=== PATIENT | female | born 1940 | race Caucasian/White ===

== ENCOUNTER 2021-10-13 02:25 | Inpatient (IN) | payer OTHER, MEDICAID ==
[~2021-10-13] VITALS: Ht 160 cm; Wt 57.6 kg
[2021-10-13] VITALS (12 sets, daily range): BP systolic 112–152
[2021-10-13] MEDS ORDERED: ASPIRIN 81 MG TAB.CHEW PO ONE (03:00)
[2021-10-13 03:22] LABS: BASOPHILS % (AUTO) 0.1 % (0.0-2.0); EOSINOPHILS % (AUTO) 0.1 % (0.0-4.0); HEMATOCRIT 32.7 % (36-48); LYMPHOCYTES # (AUTO) 0.6 K/uL (1.0-5.5); LYMPHOCYTES % (AUTO) 3.5 % (20.5-51.5); MEAN CORPUSCULAR HEMOGLOBIN 30 pg (27-31); MEAN CORPUSCULAR HGB CONC 34 % (32-36); MEAN CORPUSCULAR VOLUME 90 fL (79.0-98.0); MONOCYTES # (AUTO) 0.4 K/uL (0.0-1.0); NEUTROPHILS # (AUTO) 17.3 K/uL (1.8-7.7); NEUTROPHILS % (AUTO) 94.3 % (40.0-70.0); PLATELET COUNT (AUTO) 413 K/uL (130-430); RED BLOOD CELL COUNT(AUTO) 3.63 MIL/uL (4.2-6.2); RED CELL DISTRIBUTION WIDTH 16.4 % (9.0-15.0); WHITE BLOOD COUNT (AUTO) 18.4 K/uL (4.8-10.8)
[2021-10-13 03:35] LABS: ANION GAP 10 (5-15); CALCIUM 8.4 mg/dL (8.4-11.0); CHLORIDE 100 mmol/L (98-107); CREATININE 0.86 mg/dL (0.55-1.30); GLUCOSE 198 mg/dL (70-99); POTASSIUM 4.5 mmol/L (3.5-5.1); SODIUM SERUM 138 mmol/L (136-145); UREA NITROGEN, BLOOD 16 mg/dL (8-21)
[2021-10-13 03:39] LABS: INR 1.1 (0.8-1.2); PROTHROMBIN TIME 10.9 SECS (9.5-12.5)
[2021-10-13 03:46] LABS: ALANINE AMINOTRANSFERASE 47 U/L (12-78); ALBUMIN 2.2 g/dL (3.4-4.8); ASPARTATE AMINOTRANSFERASE 22 U/L (10-37); TOTAL BILIRUBIN 0.4 mg/dL (0.0-1.0)
[2021-10-13] MEDS ORDERED: cefTRIAXone 1 GM IVPB PREMIX 50 ML IV ONE (05:15)
[2021-10-13] MEDS ORDERED: AZITHROMYCIN 500 MG in NS 250 ML IV ONE (05:15)
[2021-10-13] MEDS ORDERED: BISA5TAB10 PO (06:24)
[2021-10-13] MEDS ORDERED: ATOR40TA68 PO (06:24)
[2021-10-13] MEDS ORDERED: PRED20TA PO (06:24)
[2021-10-13] MEDS ORDERED: METO25TA6 PO (06:24)
[2021-10-13] MEDS ORDERED: LISI20TA30 PO (06:24)
[2021-10-13] MEDS ORDERED: INSU100V7 SUBCUT (06:24)
[2021-10-13] MEDS ORDERED: METF-864 PO (06:24)
[2021-10-13] MEDS ORDERED: GLUC1KIT IM (06:24)
[2021-10-13] MEDS ORDERED: MULT-1117 PO (06:24)
[2021-10-13] MEDS ORDERED: DOCU-144 PO (06:24)
[2021-10-13] MEDS ORDERED: ALBU2.5V7 INH (06:24)
[2021-10-13] MEDS ORDERED: ONDA8TAB60 PO (06:24)
[2021-10-13] MEDS ORDERED: LOVI60 SQ (06:24)
[2021-10-13] MEDS ORDERED: ACET325T PO (06:24)
[2021-10-13] MEDS ORDERED: CEFT500V5 IV (06:24)
[2021-10-13] MEDS ORDERED: *LOVENOX 1MG/KG Q12H/PHARMACY XX PRN (07:15)
[2021-10-13] MEDS ORDERED: AZITHROMYCIN 500 MG/VIAL (ZITHROMAX) IV ONE (07:35)
[2021-10-13] MEDS ORDERED: METHYLPREDNISOLONE SOD SUCC 40 MG/ML VIAL IVP ONE (08:15)
[2021-10-13] MEDS: IPRATROPIUM/ALBUTEROL SULFATE 3 ML AMPUL.NEB (DUONEB) INH SCH ×5 (08:53→23:00)
[2021-10-13] MEDS: BUDESONIDE 0.5 MG/2 ML AMPUL.NEB INH SCH ×2 (08:54→19:24)
[2021-10-13] MEDS: PIPERACILLIN/TAZO 3.375/DEX-IS 50 ML IV SCH ×3 (09:34→18:56)
[2021-10-13 09:52] LABS: BILIRUBIN,URINE NEGATIVE (NEGATIVE); BLOOD, URINE NEGATIVE (NEGATIVE); CLARITY/URINE CLEAR (CLEAR); COLOR,URINE YELLOW (YELLOW); GLUCOSE,URINE NEGATIVE (NEGATIVE); KETONES,URINE 1+ (NEGATIVE); LEUKOCYTE ESTERASE ,URINE TRACE (NEGATIVE); NITRITE, URINE NEGATIVE (NEGATIVE); PROTEIN URINE TRACE (NEGATIVE); UROBILINOGEN,URINE 0.2 (0.2-1.0)
[2021-10-13 10:28] LABS: BACTERIA,URINE RARE /HPF (None Seen); RBC,URINE 0-3 /HPF (0-3)
[2021-10-13] MEDS: ENOXAPARIN SODIUM 60 MG/0.6 ML SYRINGE SUBCUT SCH ×2 (11:58→20:51)
[2021-10-13] MEDS ORDERED: NON-FORMULARY MEDICATION (Ondansetron Hcl 8 MG) PO SCH (12:00)
[2021-10-13] MEDS ORDERED: DEXTROSE 50%-WATER 50 ML DISP.SYRIN IVP PRN (12:00)
[2021-10-13] MEDS ORDERED: ONDANSETRON HCL 4 MG/2 ML VIAL IVP PRN (12:00)
[2021-10-13] MEDS ORDERED: D5W 1,000 ML IV PRN (12:00)
[2021-10-13] MEDS ORDERED: GLUCAGON HUMAN RECOMBINANT 1 MG IM SCH (12:00)
[2021-10-13] MEDS ORDERED: ACETAMINOPHEN 325 MG TABLET PO PRN (12:00)
[2021-10-13] MEDS ORDERED: GLUCOSE (DEXTROSE) ORAL GEL -Adults PO PRN (12:00)
[2021-10-13] MEDS: D5/0.45 NS 1,000 ML IV SCH ×2 (12:12→22:00)
[2021-10-13] MEDS: METHYLPREDNISOLONE SOD SUCC 40 MG/ML VIAL IVP SCH ×2 (14:25→22:00)
[2021-10-13] MEDS ORDERED: IPRATROPIUM BROM 0.5 MG/2.5 ML VIAL.NEB (ATROVENT) INH SCH (15:00)
[2021-10-13] MEDS ORDERED: ALBUTEROL SULFATE 0.083% 2.5 MG/3 ML VIAL.NEB INH SCH (15:00)
[2021-10-13] MEDS ORDERED: METOPROLOL TARTRATE 25 MG TABLET PO ONE (15:00)
[2021-10-13] MEDS: INSULIN REGULAR, HUMAN 100 UNITS/ML, 10 ML VIAL (humuLIN R) SUBCUT PRN ×2 (18:14→20:49)
[2021-10-13] MEDS: ATORVASTATIN 20 MG TABLET PO SCH (20:53)
[2021-10-13] MEDS: DOCUSATE SODIUM 100 MG CAPSULE PO SCH (20:53)
[2021-10-13] MEDS ORDERED: ENOXAPARIN SODIUM 60 MG/0.6 ML SYRINGE SQ SCH (21:00)
[2021-10-13] MEDS ORDERED: METFORMIN HCL 1000 MG PO SCH (21:00)
[2021-10-13] MEDS ORDERED: predniSONE 20 MG TABLET PO SCH (21:00)
[2021-10-14] VITALS (17 sets, daily range): BP systolic 95–140
[2021-10-14] MEDS: PIPERACILLIN/TAZO 3.375/DEX-IS 50 ML IV SCH ×5 (00:16→23:33)
[2021-10-14] MEDS: IPRATROPIUM/ALBUTEROL SULFATE 3 ML AMPUL.NEB (DUONEB) INH SCH ×5 (02:53→20:57)
[2021-10-14 05:40] LABS: BASOPHILS # (AUTO) 0.1 K/uL (0.0-0.2); BASOPHILS % (AUTO) 0.3 % (0.0-2.0); EOSINOPHILS # (AUTO) 0.1 K/uL (0.0-0.4); EOSINOPHILS % (AUTO) 0.3 % (0.0-4.0); HEMATOCRIT 28.3 % (36-48); HEMOGLOBIN 9.7 g/dL (12.0-16.0); LYMPHOCYTES # (AUTO) 0.4 K/uL (1.0-5.5); LYMPHOCYTES % (AUTO) 1.7 % (20.5-51.5); MEAN CORPUSCULAR HEMOGLOBIN 31 pg (27-31); MEAN CORPUSCULAR HGB CONC 34 % (32-36); MEAN CORPUSCULAR VOLUME 90 fL (79.0-98.0); MONOCYTES # (AUTO) 0.5 K/uL (0.0-1.0); MONOCYTES % (AUTO) 2.4 % (1.7-9.3); NEUTROPHILS # (AUTO) 19.7 K/uL (1.8-7.7); NEUTROPHILS % (AUTO) 95.3 % (40.0-70.0); PLATELET COUNT (AUTO) 354 K/uL (130-430); RED BLOOD CELL COUNT(AUTO) 3.16 MIL/uL (4.2-6.2); RED CELL DISTRIBUTION WIDTH 16.4 % (9.0-15.0); WHITE BLOOD COUNT (AUTO) 20.7 K/uL (4.8-10.8)
[2021-10-14 06:39] LABS: ANION GAP 7 (5-15); C-REACTIVE PROTEIN QUANT 7.2 mg/dL (0-0.5); CALCIUM 8.2 mg/dL (8.4-11.0); CHLORIDE 102 mmol/L (98-107); CREATININE 0.72 mg/dL (0.55-1.30); GLUCOSE 62 mg/dL (70-99); PHOSPHORUS 4.1 mg/dL (2.7-4.5); POTASSIUM 3.5 mmol/L (3.5-5.1); SODIUM SERUM 140 mmol/L (136-145); UREA NITROGEN, BLOOD 14 mg/dL (8-21)
[2021-10-14] MEDS: METHYLPREDNISOLONE SOD SUCC 40 MG/ML VIAL IVP SCH ×3 (07:28→21:00)
[2021-10-14] MEDS: BUDESONIDE 0.5 MG/2 ML AMPUL.NEB INH SCH ×2 (07:31→20:59)
[2021-10-14] MEDS: D5/0.45 NS 1,000 ML IV SCH (07:37)
[2021-10-14] MEDS: BISACODYL 5 MG TABLET.DR (DULCOLAX) PO SCH (08:51)
[2021-10-14] MEDS: DOCUSATE SODIUM 100 MG CAPSULE PO SCH ×2 (08:51→20:59)
[2021-10-14] MEDS: AZITHROMYCIN 500 MG in NS 250 ML IV SCH (08:58)
[2021-10-14] MEDS ORDERED: cefTRIAXone 500 MG VIAL IV SCH (09:00)
[2021-10-14] MEDS: METOPROLOL TARTRATE 25 MG TABLET PO SCH (09:04)
[2021-10-14] MEDS: MULTIVITAMINS TAB 1 TABLET PO SCH (09:05)
[2021-10-14] MEDS: lisinopriL 20 MG TABLET PO SCH (09:05)
[2021-10-14] MEDS: ENOXAPARIN SODIUM 60 MG/0.6 ML SYRINGE SUBCUT SCH ×2 (09:06→21:01)
[2021-10-14] MEDS ORDERED: MAGNESIUM SULFATE 50 ML IV ONE (09:15)
[2021-10-14 09:28] LABS: ERYTHROCYTE SEDIMENTATION RATE 83 MM/HR (0-20)
[2021-10-14] MEDS: LORazepam 2 MG/ML VIAL IVP PRN (11:39)
[2021-10-14] MEDS: INSULIN REGULAR, HUMAN 100 UNITS/ML, 10 ML VIAL (humuLIN R) SUBCUT PRN ×3 (12:31→21:13)
[2021-10-14] MEDS: NORMAL SALINE 5 ML DISP.SYRIN IVF SCH ×2 (14:03→21:00)
[2021-10-14] MEDS: ATORVASTATIN 20 MG TABLET PO SCH (20:59)
[2021-10-15] VITALS (18 sets, daily range): BP systolic 108–157
[2021-10-15] MEDS: IPRATROPIUM/ALBUTEROL SULFATE 3 ML AMPUL.NEB (DUONEB) INH SCH ×4 (03:45→14:45)
[2021-10-15] MEDS: NORMAL SALINE 5 ML DISP.SYRIN IVF SCH ×3 (05:18→21:33)
[2021-10-15] MEDS: PIPERACILLIN/TAZO 3.375/DEX-IS 50 ML IV SCH ×4 (05:18→23:50)
[2021-10-15] MEDS: METHYLPREDNISOLONE SOD SUCC 40 MG/ML VIAL IVP SCH ×3 (05:19→21:32)
[2021-10-15 06:31] LABS: HEMATOCRIT 28.9 % (36-48); HEMOGLOBIN 10.1 g/dL (12.0-16.0); LYMPHOCYTES # (AUTO) 0.5 K/uL (1.0-5.5); LYMPHOCYTES % (AUTO) 2.3 % (20.5-51.5); MEAN CORPUSCULAR HEMOGLOBIN 31 pg (27-31); MEAN CORPUSCULAR HGB CONC 35 % (32-36); MEAN CORPUSCULAR VOLUME 90 fL (79.0-98.0); MONOCYTES # (AUTO) 0.7 K/uL (0.0-1.0); MONOCYTES % (AUTO) 3.1 % (1.7-9.3); NEUTROPHILS # (AUTO) 19.9 K/uL (1.8-7.7); NEUTROPHILS % (AUTO) 94.6 % (40.0-70.0); PLATELET COUNT (AUTO) 389 K/uL (130-430); RED BLOOD CELL COUNT(AUTO) 3.22 MIL/uL (4.2-6.2); RED CELL DISTRIBUTION WIDTH 16.7 % (9.0-15.0)
[2021-10-15] MEDS: INSULIN REGULAR, HUMAN 100 UNITS/ML, 10 ML VIAL (humuLIN R) SUBCUT PRN ×3 (06:38→20:30)
[2021-10-15 06:50] LABS: ANION GAP 9 (5-15); C-REACTIVE PROTEIN QUANT 3.8 mg/dL (0-0.5); CALCIUM 8.1 mg/dL (8.4-11.0); CHLORIDE 100 mmol/L (98-107); CREATININE 0.77 mg/dL (0.55-1.30); GLUCOSE 157 mg/dL (70-99); SODIUM SERUM 137 mmol/L (136-145); UREA NITROGEN, BLOOD 18 mg/dL (8-21)
[2021-10-15] MEDS: BUDESONIDE 0.5 MG/2 ML AMPUL.NEB INH SCH ×2 (07:23→20:14)
[2021-10-15] MEDS: AZITHROMYCIN 500 MG in NS 250 ML IV SCH (08:16)
[2021-10-15] MEDS: DOCUSATE SODIUM 100 MG CAPSULE PO SCH ×2 (08:17→20:12)
[2021-10-15] MEDS: METOPROLOL TARTRATE 25 MG TABLET PO SCH (08:17)
[2021-10-15] MEDS: MULTIVITAMINS TAB 1 TABLET PO SCH (08:17)
[2021-10-15] MEDS: BISACODYL 5 MG TABLET.DR (DULCOLAX) PO SCH (08:17)
[2021-10-15] MEDS: lisinopriL 20 MG TABLET PO SCH (08:18)
[2021-10-15] MEDS: ENOXAPARIN SODIUM 60 MG/0.6 ML SYRINGE SUBCUT SCH ×2 (11:04→21:33)
[2021-10-15 11:59] LABS: ERYTHROCYTE SEDIMENTATION RATE 70 MM/HR (0-20)
[2021-10-15] MEDS: LORazepam 2 MG/ML VIAL IVP PRN (15:08)
[2021-10-15] MEDS: ATORVASTATIN 20 MG TABLET PO SCH (20:12)
[2021-10-16] VITALS (25 sets, daily range): BP systolic 103–147
[2021-10-16] MEDS: METHYLPREDNISOLONE SOD SUCC 40 MG/ML VIAL IVP SCH ×3 (05:43→21:28)
[2021-10-16] MEDS: NORMAL SALINE 5 ML DISP.SYRIN IVF SCH ×3 (05:43→21:28)
[2021-10-16] MEDS: PIPERACILLIN/TAZO 3.375/DEX-IS 50 ML IV SCH ×4 (05:43→23:13)
[2021-10-16] MEDS: INSULIN REGULAR, HUMAN 100 UNITS/ML, 10 ML VIAL (humuLIN R) SUBCUT PRN ×3 (06:18→21:46)
[2021-10-16 06:47] LABS: BASOPHILS % (AUTO) 0.2 % (0.0-2.0); EOSINOPHILS % (AUTO) 0.1 % (0.0-4.0); HEMATOCRIT 29.6 % (36-48); HEMOGLOBIN 10.1 g/dL (12.0-16.0); LYMPHOCYTES # (AUTO) 0.4 K/uL (1.0-5.5); MEAN CORPUSCULAR HEMOGLOBIN 31 pg (27-31); MEAN CORPUSCULAR HGB CONC 34 % (32-36); MEAN CORPUSCULAR VOLUME 90 fL (79.0-98.0); MONOCYTES # (AUTO) 0.4 K/uL (0.0-1.0); MONOCYTES % (AUTO) 2.7 % (1.7-9.3); NEUTROPHILS # (AUTO) 13.7 K/uL (1.8-7.7); PLATELET COUNT (AUTO) 361 K/uL (130-430); RED BLOOD CELL COUNT(AUTO) 3.29 MIL/uL (4.2-6.2); RED CELL DISTRIBUTION WIDTH 16.6 % (9.0-15.0); WHITE BLOOD COUNT (AUTO) 14.6 K/uL (4.8-10.8)
[2021-10-16 07:15] LABS: ALANINE AMINOTRANSFERASE 32 U/L (12-78); ANION GAP 6 (5-15); ASPARTATE AMINOTRANSFERASE 20 U/L (10-37); C-REACTIVE PROTEIN QUANT 2.7 mg/dL (0-0.5); CALCIUM 7.8 mg/dL (8.4-11.0); CHLORIDE 103 mmol/L (98-107); CREATININE 0.58 mg/dL (0.55-1.30); GLUCOSE 174 mg/dL (70-99); POTASSIUM 3.9 mmol/L (3.5-5.1); SODIUM SERUM 138 mmol/L (136-145); TOTAL BILIRUBIN 0.3 mg/dL (0.0-1.0); UREA NITROGEN, BLOOD 14 mg/dL (8-21)
[2021-10-16] MEDS: BUDESONIDE 0.5 MG/2 ML AMPUL.NEB INH SCH ×2 (07:36→19:54)
[2021-10-16] MEDS: MULTIVITAMINS TAB 1 TABLET PO SCH (08:13)
[2021-10-16] MEDS: DOCUSATE SODIUM 100 MG CAPSULE PO SCH ×2 (08:13→21:29)
[2021-10-16] MEDS: lisinopriL 20 MG TABLET PO SCH (08:15)
[2021-10-16] MEDS: METOPROLOL TARTRATE 25 MG TABLET PO SCH (08:15)
[2021-10-16] MEDS: AZITHROMYCIN 500 MG in NS 250 ML IV SCH (08:16)
[2021-10-16] MEDS: BISACODYL 5 MG TABLET.DR (DULCOLAX) PO SCH (08:19)
[2021-10-16] MEDS: ENOXAPARIN SODIUM 60 MG/0.6 ML SYRINGE SUBCUT SCH ×2 (11:04→21:33)
[2021-10-16] MEDS ORDERED: ENOXAPARIN SODIUM 60 MG/0.6 ML SYRINGE ONE (11:04)
[2021-10-16 11:30] LABS: ERYTHROCYTE SEDIMENTATION RATE 81 MM/HR (0-20)
[2021-10-16] MEDS: ATORVASTATIN 20 MG TABLET PO SCH (21:27)
[2021-10-16] MEDS: LORazepam 2 MG/ML VIAL IVP PRN (23:12)
[2021-10-17] VITALS (14 sets, daily range): BP systolic 65–165
[2021-10-17] MEDS ORDERED: LORazepam 1 MG TABLET PO ONE (02:15)
[2021-10-17] MEDS ORDERED: LORazepam 2 MG/ML VIAL IM ONE (02:15)
[2021-10-17] MEDS ORDERED: TEMAZEPAM 7.5 MG CAPSULE PO PRN (02:15)
[2021-10-17] MEDS ORDERED: TEMAZEPAM 15 MG CAPSULE ONE (02:17)
[2021-10-17] MEDS ORDERED: LORazepam 2 MG/ML VIAL ONE (02:19)
[2021-10-17] MEDS: PIPERACILLIN/TAZO 3.375/DEX-IS 50 ML IV SCH (06:05)
[2021-10-17] MEDS: METHYLPREDNISOLONE SOD SUCC 40 MG/ML VIAL IVP SCH (06:06)
[2021-10-17] MEDS: NORMAL SALINE 5 ML DISP.SYRIN IVF SCH (06:06)
[2021-10-17 06:46] LABS: BASOPHILS # (AUTO) 0.1 K/uL (0.0-0.2); BASOPHILS % (AUTO) 0.5 % (0.0-2.0); EOSINOPHILS % (AUTO) 0.1 % (0.0-4.0); HEMATOCRIT 32.1 % (36-48); HEMOGLOBIN 10.9 g/dL (12.0-16.0); LYMPHOCYTES # (AUTO) 0.6 K/uL (1.0-5.5); MEAN CORPUSCULAR HEMOGLOBIN 31 pg (27-31); MEAN CORPUSCULAR HGB CONC 34 % (32-36); MEAN CORPUSCULAR VOLUME 90 fL (79.0-98.0); MONOCYTES # (AUTO) 0.8 K/uL (0.0-1.0); MONOCYTES % (AUTO) 4.3 % (1.7-9.3); NEUTROPHILS # (AUTO) 17.7 K/uL (1.8-7.7); NEUTROPHILS % (AUTO) 92.1 % (40.0-70.0); PLATELET COUNT (AUTO) 387 K/uL (130-430); RED BLOOD CELL COUNT(AUTO) 3.55 MIL/uL (4.2-6.2); RED CELL DISTRIBUTION WIDTH 16.8 % (9.0-15.0)
[2021-10-17] MEDS: BUDESONIDE 0.5 MG/2 ML AMPUL.NEB INH SCH (07:00)
[2021-10-17] MEDS ORDERED: MORPHINE SULFATE IN 0.9 % NACL 100 ML IV PRN ×2 (07:00→17:00)
[2021-10-17 07:01] LABS: ANION GAP 9 (5-15); C-REACTIVE PROTEIN QUANT 1.9 mg/dL (0-0.5); CALCIUM 7.9 mg/dL (8.4-11.0); CHLORIDE 103 mmol/L (98-107); CREATININE 0.77 mg/dL (0.55-1.30); GLUCOSE 201 mg/dL (70-99); POTASSIUM 3.5 mmol/L (3.5-5.1); SODIUM SERUM 139 mmol/L (136-145); UREA NITROGEN, BLOOD 21 mg/dL (8-21)
[2021-10-17 07:12] LABS: WHITE BLOOD COUNT (AUTO) 19.3 K/uL (4.8-10.8)
[2021-10-17] MEDS ORDERED: MORPHINE SULFATE IN 0.9 % NACL 100 ML IV ONE (07:14)
[2021-10-17 09:01] LABS: ERYTHROCYTE SEDIMENTATION RATE 79 MM/HR (0-20)
[2021-10-17] MEDS: LORazepam 2 MG/ML VIAL IVP PRN (09:48)
[2021-10-17] MEDS ORDERED: COMMUNICATION ORDER XX ONE (12:30)
[2021-10-17] MEDS ORDERED: LORazepam 2 MG/ML VIAL IVP PRN (12:30)
[2021-10-17] MEDS ORDERED: NALOXONE HCL 0.4 MG/ML AMP (NARCAN) IVP PRN (15:15)
[2021-10-17] MEDS ORDERED: TEMAZEPAM 15 MG CAPSULE PO SCH (21:00)
== END 2021-10-17 15:40 | DRG 871 ==
LOC: SED 02:25 → STU 06:04 → SIC 09:53
PROVIDERS: ADMIT Preventive Medicine Preventive Medicine/Occupational Environmental Medicine; ATTEND Preventive Medicine Preventive Medicine/Occupational Environmental Medicine
PROC: 5A09557 Assistance with Respiratory Ventilation, Greater than 96 Consecutive Hours, Continuous Positive Airway Pressure (ICD-10-PCS; principal; 2021-10-13)
DX: A41.9 Sepsis, unspecified organism (principal); J18.9 Pneumonia, unspecified organism; J96.21 Acute and chronic respiratory failure with hypoxia; E43 Unspecified severe protein-calorie malnutrition; I21.A1 Myocardial infarction type 2; J44.1 Chronic obstructive pulmonary disease with (acute) exacerbation; J44.0 Chronic obstructive pulmonary disease with (acute) lower respiratory infection; I48.91 Unspecified atrial fibrillation; J84.10 Pulmonary fibrosis, unspecified; E11.65 Type 2 diabetes mellitus with hyperglycemia; D64.9 Anemia, unspecified; E88.09 Other disorders of plasma-protein metabolism, not elsewhere classified; E83.52 Hypercalcemia; E83.41 Hypermagnesemia; Z20.822 Contact with and (suspected) exposure to COVID-19; I11.0 Hypertensive heart disease with heart failure; I50.9 Heart failure, unspecified; Z86.711 Personal history of pulmonary embolism; Z85.72 Personal history of non-Hodgkin lymphomas; Z85.3 Personal history of malignant neoplasm of breast; Z68.22 Body mass index [BMI] 22.0-22.9, adult
CPT/HCPCS: 36415; 36600; 71045; 71250-TC; 76376; 80048; 80053; 81000; 82803-TC; 82962; 83605; 83735; 83880; 84100; 84484; 85025; 85610-TC; 85651-TC; 85730-TC; 86140; 87040; 87081; 93005; 93306; 94640; 94660; 99285; J0456; J0696; J1030; J1650; J2060; J2270; J2405; J2543; J3475; J7050; J7626; U0003